=== PATIENT | male | born 1940 | race Caucasian/White ===

== ENCOUNTER → 2020-10-19 00:01 | Outpatient (BNVA) | payer OTHER, MEDICARE, SELFPAY | PROVIDERS: Family Provider Internal Medicine; Visit Provider Surgery | DX: Z11.59 Encounter for screening for other viral diseases (principal) | CPT/HCPCS: 87635 ==

== ENCOUNTER 2020-10-25 05:44 | Day surgery (SDC) | payer MEDICARE, OTHER, SELFPAY ==
[2020-10-23 12:23] VITALS: BMI 35.2
[2020-10-25 06:14] VITALS: BP 144/82; PULSE 69; RESP 18; TEMP 36.4; O2SAT 96
--- NOTE | 2020-10-25 06:22 | W.PM.OPSFHP ---
Same Day Surgery H&P Indication for Procedure/HPI DATE OF PROCEDURE: October 25, 2020 CHIEF COMPLAINT/INDICATIONFOR SURGICAL PROCEDURE: Colon polyps PREOP DIAGNOSIS: History of colon polyp PLANNED PROCEDRUE: Operation Date: 10/25/20 07:00 Proposed Procedures p Colonoscopy 87132 Z86.010(Not Applicable) - Quinten Rincon MD This is a pleasant 79 years old gentleman was referred to me for evaluation for surveillance colonoscopy, patient did have many years ago a colonoscopy and polyps were removed. Currently he denies any bleeding per rectum or colon cancer history and also denies nonintentional weight loss. Interim history 10/25/2020 Patient comes today for surveillance colonoscopy ROS All systems have been reviewed negative except as per the above Medications/Allergies* Home Medications Medication Instructions Recorded Confirmed Type amlodipine 10 mg tablet 10 mg PO DAILY 06/05/20 10/23/20 History ascorbate calcium (vitamin C) 500 500 mg PO DAILY 06/05/20 10/23/20 History mg tablet carvedilol 25 mg tablet 25 mg PO BID 06/05/20 10/23/20 History chlorthalidone 25 mg tablet 25 mg PO BID tab 06/05/20 10/23/20 History duloxetine 20 mg capsule,delayed 20 mg PO BID 06/05/20 10/23/20 History release sprinkle fenofibrate nanocrystallized 145 145 mg PO DAILY 06/05/20 10/23/20 History mg tablet finasteride 5 mg tablet 5 mg PO DAILY 06/05/20 10/23/20 History insulin glargine 100 unit/mL (3 82 unit SUBCUT DAILY ml 06/05/20 10/23/20 History mL) subcutaneous pen levothyroxine 150 mcg tablet 150 mcg PO DAILY 06/05/20 10/23/20 History lisinopril 40 mg tablet 40 mg PO DAILY 06/05/20 10/23/20 History metformin 1,000 mg tablet 1,000 mg PO BID 06/05/20 10/23/20 History methocarbamol 750 mg tablet 750 mg PO QID 06/05/20 10/23/20 History omeprazole 20 mg capsule,delayed 20 mg PO BID 06/05/20 10/23/20 History release pregabalin 100 mg capsule 100 mg PO BID 06/05/20 10/23/20 History tamsulosin 0.4 mg capsule 0.4 mg PO DAILY 06/05/20 10/23/20 History vitamin B complex 1 tab PO DAILY 06/05/20 10/23/20 History ropinirole 0.5 mg tablet 0.5 mg PO DAILY 09/06/20 10/23/20 History rosuvastatin 40 mg tablet 40 mg PO DAILY 09/06/20 10/23/20 History hydrocodone-acetaminophen [[place]] 1 tab PO Q6H PRN 10/23/20 10/23/20 History Allergies/Adverse Reactions Allergy/AdvReac Type Severity Reaction Status Date / Time atorvastatin Allergy Unknown unknown Verified 10/25/20 06:25 paroxetine Allergy Unknown unknown Verified 10/25/20 06:25 pravastatin Allergy Unknown unknown Verified 10/25/20 06:25 Pertinent History/Comorbid Conditions* Medical History (Updated 09/07/20 @ 09:14 by Quinten Rincon MD) Abdominal aortic aneurysm (~05/2020) Bilateral carotid artery stenosis Colon polyp Diabetes Hyperlipidemia Hypertension Surgical History (Updated 06/05/20 @ 15:46 by Lamine Craig MD) H/O: knee surgery History of back surgery History of esophageal surgery Hx of cholecystectomy Hx of spinal fusion Family History (Updated 06/05/20 @ 15:37 by Kendra Collier RN) Diabetes CAD (coronary artery disease) Cancer Stroke Denies family history of Anesthesia complication Bleeding disorder Social History Smoking and tobacco status: former smoker Alcohol intake: never Lives independently: Yes Marital status: / Current occupational status: retired History of recent travel: No Pertinent Exam Findings alert, oriented x 3, clear to auscultation bilaterally, regular rate & rhythm and procedure specific exam findings (Abdominal examination nontender nondistended soft, obese) Recommendations Surgery/Procedure today (Colonoscopy with possible biopsy and possible polypectomy) Coding Level of Care Code Acute Joinery Patternmaker for Kyle Aldrich
[2020-10-25 06:25] LABS: Glucose Point of Care 94 mg/dL (70-110)
[2020-10-25] MEDS: sodium chloride 0.9% 1,000 ML 30 ML IV (06:30)
--- NOTE | 2020-10-25 06:46 | ANES.PREANE2 ---
Pre-Anesthetic Assessment Pre-Anesthetic Assessment: Height/Weight: Height 1.78 m Weight 111.13 kg Temp Pulse Resp BP Pulse Ox 97.5 F L 69 18 144/82 96 10/25/20 06:14 10/25/20 06:14 10/25/20 06:14 10/25/20 06:14 10/25/20 06:14 Preop Diagnosis: History of colon polyp Proposed Procedure: Operation Date: 10/25/20 07:00 Proposed Procedures p Colonoscopy 46170 Z86.010(Not Applicable) - Quinten Rincon MD Familial anesthetic complications: NOne Was Beta Neyda taken within 24 hours: Yes Last intake: Intake Last Liquid Date 10/24/20 Last Liquid Time 23:30 Last Solid Date 10/24/20 Last Solid Time 08:00 Social: Social History: No alcohol and No tobacco Comment: former smoker Exam: Pre-Anes Outpt Exam: alert, oriented x 3, clear to auscultation bilaterally and regular rate & rhythm Airway: Cervical ROM: WNL MP: 2 Dentition: Full Additional comments: My teeth are worn off from grinding my teeth at night CV/HEM: CV/HEM: HTN Comments: AAA 4.3 cm GI: GI: GERD Metabolic: Metabolic: DM and Hyperlipidemia Neuropsych: Comments: Mod B/L GABBY Anesthetic Plan: ASA status: 3 Anesthesia: MAC Risk of > 500 ml blood loss (7ml/kg in children): No PFSH Anesthesia PFSH: Medical History Abdominal aortic aneurysm (~05/2020) Bilateral carotid artery stenosis Colon polyp Diabetes Hyperlipidemia Hypertension Surgical History H/O: knee surgery History of back surgery History of esophageal surgery Hx of cholecystectomy Hx of spinal fusion Family History Other CAD (coronary artery disease) Cancer Diabetes Stroke Denies family history of Anesthesia complication Bleeding disorder Social History Smoking and tobacco status: former smoker Alcohol intake: never Lives independently: Yes Marital status: / Current occupational status: retired History of recent travel: No Data Anesthesia Other Labs: Laboratory Results - last 48 hr 10/25/20 06:20 POC Glucose 94 Cardiac Studies: No Data to Display
[2020-10-25 07:43] VITALS: BP 149/68; PULSE 62; RESP 18; TEMP 36.6; O2SAT 94
--- NOTE | 2020-10-25 07:48 | ANE.PACU2 ---
Inpatient post-anesthesia follow up: Airway intact: Yes Vital signs: Temperature 97.5 F Pulse Rate 69 Respiratory Rate 18 Blood Pressure 144/82 Pulse Oximetry 96 Oxygen Delivery Me thod Room Air Oxygen Flow Rate Fraction of Inspir ed Oxygen Hydration adequate: Yes Nausea and vomiting: No Pain level: 1 Mental status: Baseline
== END 2020-10-25 08:12 | disposition home or self-care (01) ==
PROVIDERS: Visit Provider Surgery
PROC: 0DJD8ZZ Inspection of Lower Intestinal Tract, Via Natural or Artificial Opening Endoscopic (ICD-10-PCS; CPT 45378; principal; 2020-10-25 07:00)
DX: Z12.11 Encounter for screening for malignant neoplasm of colon (principal); D12.3 Benign neoplasm of transverse colon; D12.8 Benign neoplasm of rectum; Z86.010 Personal history of colon polyps; E11.9 Type 2 diabetes mellitus without complications; E78.5 Hyperlipidemia, unspecified; I10 Essential (primary) hypertension; Z98.1 Arthrodesis status; Z87.891 Personal history of nicotine dependence; K21.9 Gastro-esophageal reflux disease without esophagitis
CPT/HCPCS: 12345; 36416; 45385; 82962; 88305; J2704; J7030

== ENCOUNTER 2020-11-23 10:06 | Emergency (ER) | payer OTHER, MEDICARE, SELFPAY ==
[2020-11-23 10:09] VITALS: BP 156/74; PULSE 56; RESP 18; O2SAT 94; BMI 35.9
--- NOTE | 2020-11-23 10:21 | XR_ITS ---
WS: [id number] Portable AP upright chest, 11/23/2020 Clinical Data: syncope Comparison: PA chest, 10/03/2012. Findings: Minimal bilateral patchy opacities may represent pneumonia and/or atelectasis. There is danish nting the left costophrenic angle and there may be a small left effusion. No nodules or masses are se en. The heart is normal. The pulmonary vascularity is not increased. The aortic arch and descending a franklin show calcification and tortuosity. Monitor leads are on the chest wall. XR/XR chest 1V portable [id number] Impression: 1. Minimal patchy bilateral lower lobe opacities which may represent atelectasi s and/or pneumonia. 2. Minimal left pleural effusion. 3. Atherosclerosis.
--- NOTE | 2020-11-23 10:22 | ECG_ITS ---
[facility] Test Date: 2020-11-23 Pat Name: García Zuniga Department: Room: Gender: Male Funeral Driver: : 1940 Requested By: Shen Adams Order Number: [id number] Soni MD: Ewa Dick M.D. Measurements Intervals [place] Rate: 57 P: 60 CT: 219 QRS: -39 QRSD: 159 T: 104 QT: 469 QTc: 460 Interpretive Statements SINUS BRADYCARDIA WITH FIRST DEGREE AV BLOCK LEFT AXIS DEVIATION [QRS AXIS < -30] LEFT BUNDLE BRANCH BLOCK [120+ ms QRS DURATION, 80+ ms Q/S IN V1/V2, 85+ ms R IN I/aVL/V5/V6] No previous ECG available for comparison Electronically Signed On 11-23-2020 20:22:00 FIELD ADJUSTER by Ewa Dick M.D. [id number]
--- NOTE | 2020-11-23 10:27 | ED_ITS ---
HPI - Syncope General: Chief Complaint: Syncope Stated Complaint: SYNCOPE/ DIZZINESS/ NAUSEA Time Seen by Provider: 11/23/20 10:21 History of Present Illness: HPI narrative: 79-year-old male presents emergency room with complaints of near syncopal episode this morning when he was trying to get out of bed. He is history of hypertension and diabetes mellitus. He is not change any of his medications recently. He did add Crestor. He denies any chest pain. He did get lightheaded and dizzy he is not entirely sure if he lost consciousness at any point. MD complaint: almost passed out Onset (ago): minute(s) Prodromal symptoms: lightheaded Witnessed: Yes - by Bystander Context: getting out of bed Injuries sustained associated with event: none Associated symptoms: Deny abdominal pain, chest pain, fever(s), headache(s), lightheadedness, nausea, short of breath, vertigo or weakness History: previous syncopal episode Treatments prior to arrival: none Review of Systems Const: Denies: fever(s) ENMT: Denies: throat pain, ear or mastoid pain, nasal discharge or nasal congestion Card: Denies: chest pain or lightheadedness Resp: Denies: dyspnea, productive cough or non-productive cough GI: Denies: abdominal pain or nausea : Denies: flank pain, dysuria, urinary frequency or urinary urgency Skin/Breast: Denies: rash or pruritus Neuro: Denies: headache(s) or vertigo [facility] ED PFSH: Medical History Abdominal aortic aneurysm (~05/2020) Bilateral carotid artery stenosis Colon polyp Diabetes Hyperlipidemia Hypertension Surgical History H/O: knee surgery History of back surgery History of esophageal surgery Hx of cholecystectomy Hx of spinal fusion Family History Other CAD (coronary artery disease) Cancer Diabetes Stroke Denies family history of Anesthesia complication Bleeding disorder Social History Smoking and tobacco status: former smoker Alcohol intake: never Lives independently: Yes Marital status: / Current occupational status: retired History of recent travel: No Physical Exam Const: COMMON NORMALS: no acute distress GENERAL APPEARANCE: cooperative and comfortable ORIENTATION/CONSCIOUSNESS: Yes awake, Yes oriented to person, Yes oriented to place and Yes oriented to time HENMT: COMMON NORMALS: normocephalic, atraumatic, hearing grossly normal chris aterally, external ears normal, EAC's normal, TM's normal bilaterally, Normal nasal mucous membranes and turbinates present, moist oral mucous membranes and oropharynx normal HEAD & SCALP: normocephalic and atraumatic NOSE: Normal nasal mucous membranes and turbinates present EXTERNAL EAR: Yes external ears normal EXTERNAL AUDITORY CANAL: EAC's normal TYMPANIC MEMBRANE: TM's normal bilaterally Eye: COMMON NORMALS: Equal, round and reactive pupils present, EOMs intact bilaterally, conjunctivae normal and no scleral icterus CONJUNCTIVA: Yes conjunctivae normal PUPIL: Yes Equal, round and reactive pupils present Neck/C-Spine: COMMON NORMALS: full ROM, no lymphadenopathy, supple and no JVD Resp: COMMON NORMALS: normal respiratory effort, No retractions, No use of accessory muscles and clear to auscultation bilaterally AUSCULTATION: clear to auscultation bilaterally Cardio: COMMON NORMALS: no JVD, regular rate, regular rhythm and No murmurs present (Cardio) RATE: regular rate RHYTHM: regular rhythm GI: COMMON NORMALS: Soft to palpation and No hepatosplenomegaly present AUSCULTATION: Yes normoactive bowel sounds PALPATION: Yes Soft to palpation, No Tenderness to palpation present (GI), No Guarding due to palpation present (G I) and Yes No hepatosplenomegaly present Extremity: COMMON NORMALS: normal to inspection, capillary refill normal, no clubbing, cyanosis or edema, no calf tenderness and no pedal edema Neuro: SENSORIUM/ORIENTATION: Yes oriented to person, Yes oriented to place and Yes oriented to time Skin: COMMON NORMALS: no rashes or lesions noted GENERAL SKIN EXAM: no rashes or lesions noted Course Vital Signs: Vital signs: Vital Signs Pulse Rate 86 11/23/20 14:29 Respiratory Rate 16 11/23/20 14:29 Blood Pressure 157/60 11/23/20 14:29 Pulse Oximetry 98 11/23/20 14:29 MDM - Syncope MDM Narrative: Medical decision making narrative: Masood is reproducible in the exam room when turning to the left. Treat with meclizine patient is feeling better. Follow-up with primary care. Lab Data: Labs: Lab Results 11/23/20 11/23/20 11/23/20 Range/Units 10:24 10:24 10:24 WBC 9.2 (4.0-10.0) 10^3/ uL RBC 3.90 L (4.1-5.3) 10^6/u L Hgb 11.7 (11.7-16.6) g/dL Hct 36.9 L (42.0-52.0) % MCV 94.6 H (80-94) fL MCH 30.0 (28.0-34.0) pg MCHC 31.7 (30.0-36.0) g/dL RDW 14.2 (12.1-15.1) % Plt Count 348 (130-400) 10^3/c mm MPV 10.2 (7.4-10.4) fL Neut % (Auto) 68.7 % Lymph % (Auto) 19.4 % [place] % (Auto) 7.0 % Eos % (Auto) 3.4 % Baso % (Auto) 1.1 % Neut # (Auto) 6.30 (1.8-7.7) 10^3/u L Lymph # (Auto) 1.8 (0.8-4.8) 10^3/u L [place] # (Auto) 0.6 (0.2-0.9) 10^3/u L Eos # (Auto) 0.3 (0.0-0.8) 10^3/u L Baso # (Auto) 0.1 (0.0-0.1) 10^3/u L Nucleated RBC % (a uto) 0 % Nucleated RBCs # 0.0 /100WBC Sodium 137 (136-145) mmol/L Potassium 4.8 (3.5-5.1) mmol/L Chloride 102 (98-107) mmol/L Carbon Dioxide 26 (22-29) mmol/L Anion Gap 13.8 (5-19) BUN 36 H (8-23) mg/dL Creatinine 1.2 (0.7-1.2) mg/dL GFR Calculation Not Reportable Glucose 133 H (65-115) mg/dL Calculated Osmolal ity 294 (285-295) mOsm/k g Calcium 9.4 (8.5-10.5) mg/dL Magnesium 1.6 L (1.7-2.3) mg/dL Total Bilirubin 0.2 (0.15-1.2) mg/dL AST 14 (0-40) U/L ALT 10 (0-41) U/L Alkaline Phosphata se 40 (40-130) IU/L Troponin T Baselin e 25 H (0-15) ng/L Troponin T 120 Min [place] (0-15) ng/L Delta Troponin T (0-10) ABS# NT-Pro-B Natriuret Pep 387 (0-450) pg/mL Total Protein 6.8 (6.6-8.7) g/dL Albumin 4.1 (3.5-5.2) g/dL Globulin 2.7 (1.3-4.6) g/dL Urine Color (Yellow) Urine Appearance (CLEAR) Urine pH (5-7) Ur Specific Gravit y (1.005-1.030) Urine Protein (Negative) Urine Glucose (UA) (Normal) Urine Ketones (Negative) Urine Blood (Negative) Urine Nitrate (Negative) Urine Bilirubin (Negative) Urine Urobilinogen (Negative) mg/dL Ur Leukocyte Mirna ase (Negative) Urine RBC (0-2) /hpf Urine WBC (0-5) /hpf Ur Squamous Epith Cells (0-5) /hpf Amorphous Sediment Urine Bacteria (NONE) /hpf 11/23/20 11/23/20 Range/Units 12:37 12:44 WBC (4.0-10.0) 10^3/ uL RBC (4.1-5.3) 10^6/u L Hgb (11.7-16.6) g/dL Hct (42.0-52.0) % MCV (80-94) fL MCH (28.0-34.0) pg MCHC (30.0-36.0) g/dL RDW (12.1-15.1) % Plt Count (130-400) 10^3/c mm MPV (7.4-10.4) fL Neut % (Auto) % Lymph % (Auto) % [place] % (Auto) % Eos % (Auto) % Baso % (Auto) % Neut # (Auto) (1.8-7.7) 10^3/u L Lymph # (Auto) (0.8-4.8) 10^3/u L [place] # (Auto) (0.2-0.9) 10^3/u L Eos # (Auto) (0.0-0.8) 10^3/u L Baso # (Auto) (0.0-0.1) 10^3/u L Nucleated RBC % (a uto) % Nucleated RBCs # /100WBC Sodium (136-145) mmol/L Potassium (3.5-5.1) mmol/L Chloride (98-107) mmol/L Carbon Dioxide (22-29) mmol/L Anion Gap (5-19) BUN (8-23) mg/dL Creatinine (0.7-1.2) mg/dL GFR Calculation Glucose (65-115) mg/dL Calculated Osmolal ity (285-295) mOsm/k g Calcium (8.5-10.5) mg/dL Magnesium (1.7-2.3) mg/dL Total Bilirubin (0.15-1.2) mg/dL AST (0-40) U/L ALT (0-41) U/L Alkaline Phosphata se (40-130) IU/L Troponin T Baselin e (0-15) ng/L Troponin T 120 Min [place] 23.81 H (0-15) ng/L Delta Troponin T -1.19 L (0-10) ABS# NT-Pro-B Natriuret Pep (0-450) pg/mL Total Protein (6.6-8.7) g/dL Albumin (3.5-5.2) g/dL Globulin (1.3-4.6) g/dL Urine Color Yellow (Yellow) Urine Appearance Clear (CLEAR) Urine pH 7 (5-7) Ur Specific Gravit y 1.005 (1.005-1.030) Urine Protein Neg (Negative) Urine Glucose (UA) Norm (Normal) Urine Ketones Negative (Negative) Urine Blood Neg (Negative) Urine Nitrate Negative (Negative) Urine Bilirubin Neg (Negative) Urine Urobilinogen Norm (Negative) mg/dL Ur Leukocyte Mirna ase Negative (Negative) Urine RBC 0-4 H (0-2) /hpf Urine WBC 0-4 H (0-5) /hpf Ur Squamous Epith Cells 0-4 H (0-5) /hpf Amorphous Sediment Not Reportable Urine Bacteria Trace (NONE) /hpf Discharge Plan Discharge Patient Disposition: Home Clinical Impression: Benign paroxysmal positional vertigo Condition: Stable Prescriptions: New meclizine 25 mg tablet 25 mg PO QID PRN (Reason: dizziness) Qty: 20 RF: 0 No Action lisinopril 40 mg tablet 40 mg PO DAILY RF: 0 carvedilol [[place]] 25 mg tablet 25 mg PO BID RF: 0 chlorthalidone 25 mg tablet 25 mg PO BID RF: 0 tamsulosin 0.4 mg capsule 0.4 mg PO DAILY RF: 0 vitamin B complex [B Complex-Vitamin B12] Tablet 1 tab PO DAILY RF: 0 amlodipine 10 mg tablet 10 mg PO DAILY RF: 0 levothyroxine 150 mcg tablet 150 mcg PO DAILY RF: 0 pregabalin 100 mg capsule 100 mg PO BID RF: 0 duloxetine 20 mg capsule, delayed rel sprinkle 20 mg PO BID RF: 0 ascorbate calcium (vitamin C) 500 mg tablet 500 mg PO DAILY RF: 0 Lantus Solostar U-100 Insulin 100 unit/mL (3 mL) insulin pen 82 unit SUBCUT DAILY RF: 0 methocarbamol 750 mg tablet 750 mg PO QID RF: 0 finasteride 5 mg tablet 5 mg PO DAILY RF: 0 fenofibrate nanocrystallized 145 mg tablet 145 mg PO DAILY RF: 0 metformin 1,000 mg tablet 1,000 mg PO BID RF: 0 omeprazole 20 mg capsule,delayed release(DR/EC) 20 mg PO BID RF: 0 ropinirole 0.5 mg tablet 0.5 mg PO DAILY RF: 0 rosuvastatin 40 mg tablet 40 mg PO DAILY RF: 0 hydrocodone-acetaminophen [[place]] 7.5-325 mg Tablet 1 tab PO Q6H PRN (Reason: Pain) RF: 0 Discharge Orders: Discharge ED (Routine); Ordered 11/23/20 Ordered By: Alberto Ruiz Discharge Diet: Usual diet Discharge Activity: Limit activity as instructed Coding Level of Care Code ED Putty Mixer And Applier for Kyle Aldrich
--- NOTE | 2020-11-23 10:41 | CT_ITS ---
WS: [id number] CT HEAD NONCONTRAST HISTORY: fall/LOC TECHNIQUE: Contiguous axial imaging performed through the brain in 2.5 mm imaging. Bone and soft tiss ue windows. Sagittal and coronal reformats reviewed. All CT scans at [facility] use at ast one of these dose optimization techniques: automated exposure control; mA and/or kV adjustment pe r patient size (includes targeted exams where dose is matched to clinical indication); or iterative r econstruction. DLP: 884.47 mGy.cm COMPARISON: None available. No acute intracranial hemorrhage, midline shift or mass effect. Moderate atrophy and moderate chronic microvascular ischemic changes within the white matter. No prio r infarcts. Ventricles: Normal size with no hydrocephalus. Paranasal sinuses: No air-fluid levels. Mild mucoperiosteal thickening. Mastoid air cells: Well pneumatized. Calvarium and scalp: Skull is intact with no soft tissue edema or swelling. CT/CT head wo con* [id number] IMPRESSION: 1. No acute intracranial hemorrhage or edema. 2. No skull fracture. 3. Moderate atrophy and chronic ischemic disease.
[2020-11-23 10:54] LABS: Basophils # 0.1 10^3/uL (0.0-0.1); Basophils % 1.1 %; Eosinophils # 0.3 10^3/uL (0.0-0.8); Eosinophils % 3.4 %; Hematocrit 36.9 % (42.0-52.0); Hemoglobin 11.7 g/dL (11.7-16.6); Lymphocytes # 1.8 10^3/uL (0.8-4.8); Lymphocytes % 19.4 %; Mean Corpuscular HGB Conc 31.7 g/dL (30.0-36.0); Mean Corpuscular Volume 94.6 fL (80-94); Mean Platelet Volume 10.2 fL (7.4-10.4); Monocytes # 0.6 10^3/uL (0.2-0.9); Neutrophils % 68.7 %; Nucleated Red Blood Cells % 0 %; Platelet Count 348 10^3/cmm (130-400); Red Cell Distribution Width 14.2 % (12.1-15.1); White Blood Count 9.2 10^3/uL (4.0-10.0)
[2020-11-23 11:14] LABS: Troponin(5th) Baseline 25 ng/L (0-15)
[2020-11-23 11:23] LABS: Alanine Aminotransferase 10 U/L (0-41); Albumin Level 4.1 g/dL (3.5-5.2); Alkaline Phosphatase 40 IU/L (40-130); Anion Gap 13.8 (5-19); Aspartate Amino Transferase 14 U/L (0-40); Blood Urea Nitrogen 36 mg/dL (8-23); Calcium 9.4 mg/dL (8.5-10.5); Carbon Dioxide 26 mmol/L (22-29); Chloride 102 mmol/L (98-107); Globulin 2.7 g/dL (1.3-4.6); Glucose 133 mg/dL (65-115); Magnesium 1.6 mg/dL (1.7-2.3); NT Pro B Type Natriuretic Pept 387 pg/mL (0-450); Osmolality Calculated 294 mOsm/kg (285-295); Potassium 4.8 mmol/L (3.5-5.1); Sodium 137 mmol/L (136-145); Total Bilirubin 0.2 mg/dL (0.15-1.2); Total Protein 6.8 g/dL (6.6-8.7)
--- NOTE | 2020-11-23 12:37 | ECG_ITS ---
[facility] Test Date: 2020-11-23 Pat Name: García Zuniga Department: Room: Gender: Male Cage Shift Manager: : 1940 Requested By: Alberto Bejarano Order Number: [id number] Zachariah MD: Ewa Dick M.D. Measurements Intervals [place] Rate: 63 P: -6 UT: 158 QRS: 15 QRSD: 158 T: 163 QT: 439 QTc: 450 Interpretive Statements SINUS RHYTHM LEFT BUNDLE BRANCH BLOCK [120+ ms QRS DURATION, 80+ ms Q/S IN V1/V2, 85+ ms R IN I/aVL/V5/V6] Compared to ECG 11/23/2020 10:28:14 Sinus bradycardia no longer present First degree AV block no longer present Left-axis deviation no longer present Electronically Signed On 11-23-2020 20:28:15 ASSISTANT DIRECTOR OF NURSING by Ewa Dick M.D. [id number]
[2020-11-23 13:05] LABS: Bacteria Urine TRACE /hpf; Bilirubin Urine Neg (Negative); Blood Urine Neg (Negative); Glucose Urine UA Norm (Normal); Ketones Urine Negative (Negative); Leukocyte Esterase Urine Negative (Negative); Nitrate Urine Negative (Negative); Protein Urine Neg (Negative); RBC Urine 0-4 /hpf (0-2); Specific Gravity, Urine 1.005 (1.005-1.030); Squamous Epithelial Cell Urine 0-4 /hpf (0-5); Urine Appearance Clear (CLEAR); Urine Color Yellow (Yellow); Urobilinogen Urine Norm (Negative); WBC Urine 0-4 /hpf (0-5); pH Urine 7 (5-7)
[2020-11-23 13:33] LABS: Troponin 5 2HR 23.81 ng/L (0-15)
[2020-11-23 13:43] LABS: Troponin 5 2HR Delta -1.19 ABS# (0-10)
[2020-11-23 14:29] VITALS: BP 157/60; PULSE 86; RESP 16; O2SAT 98
== END 2020-11-23 14:32 | disposition home or self-care (01) ==
PROVIDERS: Physician Assistant; Emergency Provider Family Medicine
DX: H81.10 Benign paroxysmal vertigo, unspecified ear (principal); Z79.4 Long term (current) use of insulin; E11.9 Type 2 diabetes mellitus without complications; E78.5 Hyperlipidemia, unspecified; I10 Essential (primary) hypertension; Z87.891 Personal history of nicotine dependence
CPT/HCPCS: 12345; 36415; 70450; 71045; 80053; 81001; 83735; 83880; 84484; 85025; 93005; 99282; 99284